=== PATIENT | female | born 1945 | race African-American/Black ===

== ENCOUNTER 2017-06-20 07:57 | Day surgery (SDC) | payer OTHER, MEDICARE ==
[2017-06-19 10:12] VITALS: BMI 25.0
[2017-06-20] MEDS ORDERED: ISOSULFAN BLUE 10 MG/ML VIAL SQ ONE (12:30)
[2017-06-20] MEDS ORDERED: DEXAMETHASONE SOD PHOSPHATE 4 MG/1 ML VIAL ONE (12:40)
[2017-06-20] MEDS ORDERED: MIDAZOLAM HCL 2 MG/2 ML SINGLE DOSE VIAL ONE (12:41)
[2017-06-20] MEDS ORDERED: PROPOFOL 20 ML ONE (12:41)
[2017-06-20] MEDS ORDERED: LIDOCAINE HCL 1%, 10 MG/ML (20ML VIAL) ONE (12:52)
[2017-06-20] MEDS ORDERED: CLINDAMYCIN PHOSPHATE 600 MG/4 ML VIAL IVPB ONE (13:03)
[2017-06-20] MEDS ORDERED: ePHEDrine SULFATE 50 MG/1 ML AMPULE ONE (13:11)
[2017-06-20] MEDS ORDERED: LIDOCAINE HCL 1%, 10 MG/ML (50 mL VIAL) IJ ONE ×2 (13:14)
--- NOTE | 2017-06-20 14:15 | HP ---
History & Physical Update - History History: No Change - Physical Physical: No Change - Assessment Assessment: No Change - Plan Plan: No Change
[2017-06-20] MEDS ORDERED: oxyCODONE HCL 5 MG TABLET PO PRN (14:28)
[2017-06-20] MEDS ORDERED: IBUPROFEN 800 MG/8 ML IJ IVPB PRN (14:28)
[2017-06-20] MEDS ORDERED: ONDANSETRON 4 MG/2 ML VIAL IVPUSH PRN (14:28)
[2017-06-20] MEDS ORDERED: LACTATED RINGERS SOLUTION 1,000 ML IV SCH (14:30)
[2017-06-20 17:03] VITALS: TEMP 97.7
[2017-06-20 17:06] VITALS: BP 136/69; PULSE 64
--- NOTE | 2017-06-25 17:21 | PATH ---
Surgical Pathology Report Patient Name: ESSIE ALONZO [facility]. Rec. #: [id number] /Age/Gender: 1945 (Age: 71) / F Account: [id number] Location: [facility] Taken: 06/20/2017 Received: 06/23/2017 Reported: 06/25/2017 Physicians: Heather Fletcher M.D. Specimen(s) Received A: RIGHT BREAST EXCISION OF MASS B: LEFT AXILLARY SENTINEL LYMPH NODE C: LEFT AXILLARY SENTINEL LYMPH NODE D: LEFT AXILLARY SENTINEL LYMPH NODE E: LEFT AXILLARY SENTINEL LYMPH NODE F: LEFT BREAST Clinical History Left breast cancer Final Diagnosis A. BREAST, RIGHT, EXCISION: ATYPICAL DUCTAL HYPERPLASIA IN THE BACKGROUND OF FIBROCYSTIC CHANGES INCLUDING STROMAL FIBROSIS, APOCRINE METAPLASIA, MICROCYSTS, AND ASSOCIATED MICROCALCIFICATIONS. B. AXILLA, LEFT, SENTINEL LYMPH NODE #1, EXCISION: TWO BENIGN LYMPH NODES (0/2). C. AXILLA, LEFT, SENTINEL LYMPH NODE #2, EXCISION: TWO BENIGN LYMPH NODES (0/2). D. AXILLA, LEFT, SENTINEL LYMPH NODE #3, EXCISION: ONE BENIGN LYMPH NODE (0/1). E. AXILLA, LEFT, SENTINEL LYMPH NODE #4, EXCISION: ONE BENIGN LYMPH NODE (0/1). F. BREAST, LEFT, LOCALIZED LUMPECTOMY: INVASIVE DUCTAL CARCINOMA, MODERATELY DIFFERENTIATED (TUBULE SCORE: 2/3, NUCLEAR GRADE: 2/3, MITOTIC SCORE: 2/3; TOTAL JUAN SCORE: 6/9). INVASIVE CARCINOMA MEASURES 1.2 CM IN GREATEST DIMENSION, MICROSCOPICALLY. FOCAL DUCTAL CARCINOMA IN SITU (DCIS), SOLID AND CRIBRIFORM TYPES, INTERMEDIATE GRADE. NO LYMPHOVASCULAR INVASION IDENTIFIED. SURGICAL MARGINS ARE UNINVOLVED BY CARCINOMA; INVASIVE CARCINOMA AT 4 MM AND IN SITU CARCINOMA AT 5 MM, FROM CLOSEST ANTERIOR MARGIN. PRIOR BIOPSY SITE CHANGES ARE PRESENT. REMAINDER OF THE BREAST TISSUE WITH FIBROCYSTIC CHANGES INCLUDING STROMAL FIBROSIS, APOCRINE METAPLASIA, MICROCYSTS, USUAL DUCTAL HYPERPLASIA, AND ASSOCIATED MICROCALCIFICATIONS. PATHOLOGIC STAGE (PTNM): PT1C PN0. SEE ALSO INVASIVE CARCINOMA CASE SUMMARY BELOW. Comments Breast Invasive Carcinoma: Surgical Pathology Case Summary (Based on AJCC TNM 8 th edition) Procedure _X_ Excision (less than total mastectomy) Specimen Laterality _X_ Left Tumor Size _X_ Greatest dimension of largest invasive focus >1 mm (specify exact measurement) (millimeters): 1.2 cm Histologic Type _X_ Invasive carcinoma of no special type (ductal, not otherwise specified) Histologic Grade (Madison Histologic Score) Glandular (Acinar)/Tubular Differentiation _X_ Score 2 (10% to 75% of tumor area forming glandular/tubular structures) Nuclear Pleomorphism _X_ Score 2 Mitotic Rate _X_ Score 2 Overall Grade _X_ Grade 2 (scores of 6) Tumor Focality _X_ Single focus of invasive carcinoma Ductal Carcinoma In Situ (DCIS) _X_ DCIS is present in specimen _X_ Negative for extensive intraductal component (EIC) Margins Invasive Carcinoma Margins _X__ Uninvolved by invasive carcinoma Distance from closest margin (millimeters): 4 mm Closest margin: Anterior DCIS Margins _X_ Uninvolved by DCIS Distance from closest margin (millimeters): 5 mm Closest margin: Anterior Regional Lymph Nodes Number of Lymph Nodes with Macrometastases (>2 mm): 0 Number of Lymph Nodes with Micrometastases (>0.2 mm to 2 mm and/or >200 cells): 0 Number of Lymph Nodes with Isolated Tumor Cells (=0.2 mm and =200 cells): 0 Number of Lymph Nodes Examined: _6__ Number cannot be determined Number of [place] Nodes Examined : 6 Treatment Effect _X_ No known presurgical therapy Lymphovascular Invasion _X_ Not identified Pathologic Stage Classification (pTNM, AJCC 8th Edition) Primary Tumor (Invasive Carcinoma) (pT) _X_ pT1c:Tumor >10 mm but =20 mm in greatest dimension Regional Lymph Nodes (pN) Category (pN) _X_ pN0: No regional lymph node metastasis identified or ITCs only Biomarker Studies Results of ER and ND studies performed on this specimen (block# F1) at [facility] are as follows: ER (clone [id number] mouse monoclonal antibody by [employer]):>99 % nuclear staining with strong intensity (Positive). ND (clone16 mouse monoclonal antibody by [employer]): 95% nuclear staining with moderate intensity (Positive). Her2 (IHC) & Ki-67 studies are pending and will be reported as an addendum. Positive and negative controls (internal if applicable) show appropriate results. Formalin fixation time exceeds current ASCO/CAP recommendations for ER,ND & Her2 testing (6-72 hrs). Negative results must be interpreted with caution as false negatives may occur. Cold ischemic time is within recommended guidelines/Time to formalin fixation is not given. Electronically Signed Zoila Dailey M.D. Addendum Reported: 06/26/2017 Addendum Diagnosis Results of Her2 (IHC) & Ki-67 studies performed on block "F1" at [place], [place] ([id number]) are as follows: Her2 IHC (EP3 from [employer], formerly known as [id number], using [employer] Polymer Refine detection kit): 0 (Negative) Ki-67: up to 10% (Low proliferative index) Zoila Dailey M.D. Gross Description A. Received in formalin labeled "right breast excision of mass," are 3 carmona-yellow, irregular, unoriented portions of fibroadipose tissue ranging from 3.3 x 2.4 x 1.1 cm to 6.0 x 3.8 x 2.2 cm. The medium sized portion displays a needle localization wire. There is no skin or nipple present on any of the specimens. The smallest portion is inked green, the medium portion is inked blue and the largest portion is inked black. The specimens are serially sectioned. Sectioning reveals abundant dense, white, firm fibrous tissue within the largest specimen and foci of firm fibrous tissue within the smallest specimen. No definitive mass is identified. Flexible Nanny sections are submitted in 16 cassettes as follows: 1-9-fibrous tissue, submitted sequentially from largest specimen; 62-47-lyvfxfv tissue, submitted sequentially from medium specimen; 24-44-ognittn tissue, submitted sequentially from smallest specimen. Total formalin fixation time: Between 77-82 hours B. Received in formalin labeled "left axillary sentinel node #1," are 2 carmona, irregular lymph nodes with attached fat measuring 1.5 x 1.0 x 0.6 cm and 1.4 x 0.6 x 0.6 cm. The specimens are bisected and entirely submitted in 3 cassettes as follows: 1-2-one whole bisected lymph node; 3-one whole bisected lymph node. C. Received in formalin labeled "left axillary sentinel lymph node #2," are 2 carmona, irregular lymph nodes with attached fat measuring 0.6 x 0.4 x 0.4 cm and 0.9 x 0.4 x 0.4 cm. The lymph nodes are bisected and entirely submitted in 2 cassettes as follows: 1-2-one whole bisected lymph node each. D. Received in formalin labeled "left axillary sentinel lymph node #3," is a 0.9 x 0.6 x 0.3 cm carmona, irregular possible lymph node with attached fat. The specimen is submitted in toto in one cassette. E. Received in formalin labeled "left axillary sentinel lymph node #4," is a 1.4 x 0.8 x 0.6 cm carmona, irregular lymph node with attached fat. The specimen is bisected and entirely submitted in 2 cassettes. F. Received in formalin, labeled "left breast wire localized lumpectomy," is a 5.1 x 4.6 x 2.2 cm. carmona-yellow, irregular, portion of fibroadipose tissue with a needle localization wire present. There is a short suture marking the superior aspect and a long suture marking the lateral aspect, per the surgeon. There is no skin or nipple present. The specimen is inked as follows: superior and lateral blue; inferior green; medial yellow; anterior red; deep black. The specimen is serially sectioned from superior to inferior. Sectioning reveals a 1.8 x 1.2 x 1.0 cm ill-defined mass. The mass is 0.8 cm from the deep margin, 0.4 cm from the anterior margin and 0.7 cm from the medial and inferior margins. Flexible Nanny sections are submitted in 9 cassettes as follows: 1-fullface section of mass with anterior and deep margins; 6-5-evdwwomiqr mass (each with anterior and deep margins); 5-additional mass with anterior, deep and medial margins; 6-additional medial margin; 7-lateral margin; 8-inferior margin; 9-superior margin. Total formalin fixation time: Between 77-82 hours 06/23/201706/23/2017
--- NOTE | 2017-07-17 15:39 | OP ---
DATE OF OPERATION: 06/20/2017 PREOPERATIVE DIAGNOSES: Left breast cancer, right breast abnormal ultrasound. POSTOPERATIVE DIAGNOSES: Left breast cancer, right breast abnormal ultrasound. PROCEDURE: Left breast wire-localized lumpectomy, left sentinel lymph node biopsy, right breast ultrasound-guided wire-localized excision of mass. SURGEON: Heather Fletcher MD ANESTHESIA: General. ESTIMATED BLOOD LOSS: Minimal. COMPLICATIONS: None. This was a sterile procedure. INDICATION FOR PROCEDURE: Patient presented with a routine screening mammography that noted a new, 8-mm, solid, irregular mass in the upper left breast. An ultrasound showed this to be a solid irregular mass as well as the same area on the right 9 o'clock was seen, that was previously biopsied, but continues to be suspicious according to the radiologist. She underwent a left breast ultrasound-guided needle biopsy that shows an ER/OR positive, HER2/alissa negative, infiltrating duct carcinoma. My recommendation was that of a lumpectomy with sentinel node biopsy as well as excision of the right breast mass. The procedure was discussed with her. All the questions answered. PROCEDURE IN DETAIL: Patient was brought to [facility] in [place], taken down to Breast Imaging where a wire was used to localize the clip in the upper left breast. She was then brought out to Nuclear Medicine where technetium labeled sulfur colloid was injected by the radiologist in the periareolar left 12 to 1 o'clock location. She was then brought into the operating room, and after induction of general anesthesia and IV antibiotics, a right breast ultrasound was performed by me in the 9 o'clock location, and the lesion in question identified. Using Betadine and 1% lidocaine, a Kopans wire was used to localize this mass. Both breasts and axilla were then prepped in usual sterile fashion and 5 mL of isosulfan blue dye were injected into the left areolar plexus and the breast was massaged for 5 minutes. The breasts and axilla were re-prepped and re-draped, and first, a 4-cm incision was made in the left axilla, carried down through the clavipectoral fascia to identify 4 sentinel lymph nodes that were blue and hot. These were sent for permanent section. There was no other blue dye radioactivity or pathologic-feeling lymph nodes in the left axilla. Therefore, once hemostasis was assured, the left breast lumpectomy was performed. An incision was made in the upper left breast, and a wire was used as a guide to get down to the area of interest which was excised en bloc and tagged with a long stitch lateral, short stitch superior, sent for specimen radiograph. The specimen radiograph showed the clip and wire to be intact in the specimen. This was then sent to Pathology for permanent section. Next, the right breast excision was performed. An incision was made in the outer right breast, and a wire was used as a guide to get down to the area of interest. This was excised en bloc and sent as a right breast excision of mass. Hemostasis was assured with electrocautery. The parenchyma was approximated with interrupted 2-0 Vicryl, skin approximated with interrupted 3-0 Vicryl and running 4-0 Prolene. The left lumpectomy as well as the left axillary scar was also closed in routine fashion with interrupted 3-0 Vicryl and running 4-0 Prolene. A sterile dressing with Tegaderm and 4 x 4's applied, as well as a mammary binder. She tolerated the procedure well, was extubated on the operating room table, taken to Recovery in good condition. Selina [id number]
== END 2017-06-20 16:55 | disposition home or self-care (01) ==
LOC: JASU-SURG 07:57
PROVIDERS: ATTEND Surgery
PROC: C71L1ZZ Planar Nuclear Medicine Imaging of Upper Chest Lymphatics using Technetium 99m (Tc-99m) (ICD-10-PCS; 2017-06-20)
PROC: 0HBT0ZX Excision of Right Breast, Open Approach, Diagnostic (ICD-10-PCS; 2017-06-20)
PROC: 0HBU0ZZ Excision of Left Breast, Open Approach (ICD-10-PCS; principal; 2017-06-20 10:30)
PROC: 07B60ZX Excision of Left Axillary Lymphatic, Open Approach, Diagnostic (ICD-10-PCS; 2017-06-20 10:30)
DX: C50.912 Malignant neoplasm of unspecified site of left female breast (principal); N60.31 Fibrosclerosis of right breast
CPT/HCPCS: 19281; 19286; 78195-TC; 88307-TC; 94760; A9541